=== PATIENT | female | born 1940 | race Caucasian/White ===

== ENCOUNTER 2018-06-23 06:57 | Inpatient (IN) ==
[~2018-06-23 06:57] MED LIST: Bisacodyl 10 MG Supp RECTAL PRN; HYDROmorphone PF Inj 1 MG/ML Ampul IV.PUSH PRN; Post-op Orders (for Pharmacy) OTHER STA; Zolpidem Tartrate 5 MG Tablet PO PRN
[2018-06-23] MEDS ORDERED: Dexamethasone Inj 20 MG/5 ML Vial IV.PUSH ONE (07:37)
[2018-06-23] MEDS ORDERED: Chlorhexidine 4% Topical 120 APPLIC/120 ML Bottle TOPICAL SCH (07:45)
[2018-06-23] MEDS ORDERED: ceFAZolin 2 GM Premix Inj 2 GM/50 ML PIGGYBACK IV.SIG ONE (07:52)
[2018-06-23] MEDS ORDERED: Dexamethasone PF Inj 10 MG/ML Vial ONE (07:53)
[2018-06-23] MEDS ORDERED: Metoprolol Tartrate 25 MG Tablet PO ONE (07:58)
[2018-06-23] MEDS ORDERED: Chlorhexidine Gluconate 2% 1 Pack (2 Cloths) TOPICAL ONE (07:58)
[2018-06-23] MEDS ORDERED: Vancomycin Inj 1,000 MG in Sodium Chlor 0.9% Inj 250 ML IV.SIG SCH (08:00)
[2018-06-23] MEDS ORDERED: Tranexamic Acid Inj 954 MG in Sodium Chlor 0.9% Inj 100 ML IV.SIG SCH (08:00)
[2018-06-23] MEDS ORDERED: Sodium Chlor 0.9% Inj 500 ML IV.SIG ONE (08:00)
[2018-06-23] MEDS ORDERED: Sodium Chlor 0.9% Inj 40 ML, Bupivacaine Liposo PF 1.3% Inj 20 ML P-ARTICULR SCH ×2 (08:00)
[2018-06-23] MEDS ORDERED: Tranexamic Acid Inj 3,000 MG in Sodium Chlor 0.9% Inj 100 ML P-ARTICULR ONE (08:00)
[2018-06-23] MEDS ORDERED: Acetaminophen 500 MG Tablet ONE (08:48)
[2018-06-23] MEDS: Hydroxychloroquine 200 MG Tablet PO SCH ×2 (09:00→22:20)
[2018-06-23] MEDS ORDERED: ceFAZolin 2 GM Premix Inj 2 GM/50 ML PIGGYBACK IV.SIG SCH (09:00)
[2018-06-23] MEDS ORDERED: Glycopyrrolate Inj 1 MG/5 ML Syringe IV.PUSH ONE (09:18)
[2018-06-23] MEDS ORDERED: Metoprolol Inj 5 MG/5 ML Vial IV.PUSH ONE (09:18)
[2018-06-23] MEDS ORDERED: Lidocaine PF 1% Inj 5 ML Syringe OTHER ONE (09:18)
[2018-06-23] MEDS ORDERED: Neostigmine Inj 5 MG/5 ML Syringe IV.PUSH ONE (09:18)
--- NOTE | 2018-06-23 11:25 | P.OP ---
Procedure: PREOPERATIVE DIAGNOSIS: Left hip osteoarthritis. POSTOPERATIVE DIAGNOSIS: Left hip osteoarthritis. PROCEDURE PERFORMED: Left total hip arthroplasty. SURGEON: Dr. Jackson Reveles M.D. DIRECTOR SOCIAL: SALO Johnson. ANESTHESIA: General. ESTIMATED BLOOD LOSS: 250 mL. COMPLICATIONS: None. IMPLANTS USED: Depuy Corail femoral stem []10 Sidney Gripsion Cup []56 Poly insert liner neutral []56/36 neutral femoral head []36 cobalt chrome neck length [] +8.5 JUSTIFICATION: This patient presents to the undersigned at the orthopedic clinic with chief complaints of severe left hip pain. The pain is severe and constant and interferes with activities of daily living. The patient has failed greater than 3 months of nonoperative conservative treatment to include analgesic and nonsteroidal anti-inflammatory medications, physical therapy, cortisone injections, activity modification, weight loss, home exercise program, and use of ambulatory assistive aids. X-rays of left hip reveal severe osteoarthritis with [id number] joint space narrowing, subchondral sclerosis, subchondral cysts, osteophyte formation with subluxation. The patient was counseled on risks, benefits, and alternatives to a total hip arthroplasty. The risks were discussed, which include, but are not limited to, anesthesia, bleeding, infection, damage to nerves and blood vessels , pain, stiffness, fracture, dislocations, leg length discrepancy, failure of components, blood clots, pulmonary embolus, and even . The patient favored the benefits over the risks, did wish to proceed with surgery. PROCEDURE IN DETAIL: Written consent was obtained. The patient was identified by name, taken to the operating room and placed supine on the operating table. General anesthesia was administered. The patient was preoperative IV antibiotics. The patient right and left feet were placed in the padded traction boots. The left hip and lower extremity was then prepped and draped using isopropyl alcohol, Hibiclens solution and ChloraPrep solution. After a timeout was performed, a longitudinal incision was made over the anterior aspect of the left hip. The fascia good was incised. Dissection was carried over the tensor fascia good beneath the rectus femoris. After exposure of the anterior capsule, a capsulotomy incision was performed. An oscillating saw was used to perform a femoral neck cut. The Osteoarthritic femoral head and neck was removed. A 10 blade scalpel was used to excise the labrum. Sequential reaming of the acetabulum was performed. Subsequently a porous-coated titanium acetabular cup was implanted in a press manner in approximately 45 degrees of abduction and 10 degrees of anteversion. There was good purchase and fixation after insertion of the acetabular cup. The cup was tested manually and noted to have excellent stability and fixation. A neutral highly cross-linked polyethylene liner was placed within the cup. The liner was impacted in place for fixation and tested for stability. Attention was turned to the femur where the leg was externally rotated, extended and adducted. The capsule was released off the undersurface of the greater trochanter to allow for elevation and lateralization of the femur. A box cutting osteotome was used to gain entrance into the intramedullary canal of the femur. This was followed by a canal finder and sequential broaching. A calcar planer to plane the calcar. A trial head and neck combination were evaluated prior to implantation of final components. With the final implants placed, the leg could achieve external rotation of 70 degrees and extension to the the ground without evidence of anterior instability or impingement. Soft tissue tension felt appropriate. Fluoroscopic imaging showed appropriate implantation of components. The Surgical wound was thoroughly irrigated with sterile saline Pulse Lavage antibiotic impregnated solution. The fascial layer was closed with #1 Vicryl suture, subcutaneous layer with 2-0 Vicryl sutures. The skin was closed with Dermabond. Sterile dressing applied. No intraoperative complications noted. Abhi Ferreira, Physician Health Therapist, Certified was present for the entire procedure to include the patient position, the procedure itself. The medical necessity of a physician industrial hire sales assistant was indicated in this case due to the complexity of the procedure. He assisted with position of the patient along with the ear itself. During the procedure he assisted with exposure and the retraction of muscle, tendon, bone, and neurovascular vessel structures. He assisted with the preparation of bone and also implantation of the prosthetic replacement. There was a certified surgical assistant in the room that assisted with management of instruments, but was not available to assist with the surgery itself. Jackson Burks MD Surgeon: Jackson Burks MD
[2018-06-23] MEDS ORDERED: fentaNYL Citrate Inj 100 MCG/2 ML Ampul ONE (11:50)
[2018-06-23] MEDS ORDERED: Morphine Inj 4 MG/ML Vial ONE (11:50)
[2018-06-23] MEDS ORDERED: *morphine SULFATE 4 MG/ML PERIprocedure ONLY ONE (11:50)
[2018-06-23] MEDS ORDERED: *Meperidine Inj 25 MG/ML Vial PERIprocedural Use ONLY ONE (11:53)
[2018-06-23] MEDS ORDERED: Labetalol HCl Inj 100 MG/20 ML Vial ONE (11:54)
--- NOTE | 2018-06-23 13:27 | XR ---
EXAM DATE: 06/23/2018 1:23 PM EST AGE/SEX: 77 years / Female INDICATIONS: Post op left hip. CLINICAL DATA: This is the patient's initial encounter. Patient reports that signs and symptoms have been present for 1 day and indicates a pain score of Nonresponsive. MEDICAL/SURGICAL HISTORY: Non-responsive. Non-responsive. total left hip COMPARISON: No prior exams available for comparison. FINDINGS: The patient is status post a total hip arthroplasty. Prosthesis is well-seated. Alignment is anatomic . A fracture is not appreciated. CONCLUSION: Anatomic alignment. Oscar Bundy MD FACR : Electronically signed by: Oscar Bundy MD Board Certified Radiologist 06/23/2018 1:26 PM EST
--- NOTE | 2018-06-23 13:28 | XR ---
EXAM DATE: 06/23/2018 1:15 PM EST AGE/SEX: 77 years / Female INDICATIONS: Post-op total left hip arthroplasty. CLINICAL DATA: This is the patient's initial encounter. Patient reports that signs and symptoms have been present for 1 day and indicates a pain score of Nonresponsive. MEDICAL/SURGICAL HISTORY: Non-responsive. Non-responsive. COMPARISON: No prior exams available for comparison. FINDINGS: Left total hip arthroplasty changes are noted. Alignment is normal. No fracture or subluxation seen. CONCLUSION: Postop left total hip arthroplasty. No evidence of an acute complication. Electronically signed by: Ramirez Loo MD Board Certified Radiologist 06/23/2018 1:27 PM EST
[2018-06-23] MEDS: ceFAZolin 2 GM Premix Inj 2 GM/50 ML PIGGYBACK IV.SIG SCH ×2 (16:10→22:19)
[2018-06-23] MEDS: Senna/Docusate Sodium 8.6/50 MG Tablet PO SCH ×2 (16:11→22:19)
[2018-06-23] MEDS: Multivitamin/Minerals Therapeutic Tablet PO SCH ×2 (16:11→22:19)
[2018-06-24] MEDS: ceFAZolin 2 GM Premix Inj 2 GM/50 ML PIGGYBACK IV.SIG SCH (03:42)
[2018-06-24 05:01] LABS: Hematocrit 25.4 % (35.0-46.0); Hemoglobin 8.7 gm/dL (11.6-15.3)
--- NOTE | 2018-06-24 08:17 | P.PNOP ---
Subjective Interval history: doing well. pain controlled. Physical Exam Vital signs: Vital Signs 06/23/18 11:40 06/23/18 11:55 06/23/18 12:10 Temperature 98.0 F Pulse Rate 67 68 56 L Respiratory Rate 20 18 18 Blood Pressure 176/76 H 212/84 H 167/72 H Pulse Oximetry 99 99 99 06/23/18 12:25 06/23/18 12:45 06/23/18 13:15 Temperature 97.8 F Pulse Rate 56 L 57 L 55 L Respiratory Rate 20 18 18 Blood Pressure 149/65 H 147/65 H 156/67 H Pulse Oximetry 100 100 99 06/23/18 13:48 06/23/18 14:16 06/23/18 14:45 Temperature 97.4 F L Pulse Rate 56 L 59 L 64 Respiratory Rate 20 20 18 Blood Pressure 156/70 H 151/67 H 122/94 H Pulse Oximetry 100 100 99 06/23/18 16:00 06/23/18 19:46 06/23/18 23:58 Temperature 97.4 F L 98.1 F 98.2 F Pulse Rate 61 67 75 Respiratory Rate 17 18 18 Blood Pressure 164/72 H 131/62 134/63 Pulse Oximetry 96 96 97 06/24/18 04:05 Temperature 98.0 F Pulse Rate 73 Respiratory Rate 18 Blood Pressure 156/70 H Pulse Oximetry 94 L Intake & Output 06/23/18 06/24/18 06/24/18 18:59 06:59 18:59 Intake Total 1259.54 / 1259.54 410 / 410 Output Total 200 / 200 Balance 1059.54 / 1059.54 410 / 410 Weight 63.6 kg 63.6 kg Intake: IV 459.54 / 459.54 50 / 50 Cyklokapron Inj 954 MG In NS 109.54 / 109.54 Inj 100 ML @ 200 mls/hr IV.SIG ONCE ALEXANDER Rx#:[id number] Vancomycin Inj 1,000 MG In NS 250 / 250 Inj 250 ML @ 250 mls/hr IV.SIG POWER LINEMAN TECHNICIAN ALEXANDER Rx#:[id number] Ancef 2 GM Premix Inj 2 gm In 100 / 100 50 / 50 50 ml @ 100 mls/hr IV.SIG Q6H ALEXANDER Rx#:[id number] Oral 360 / 360 Anesthesia Amount 800 / 800 Output: Estimated Blood Loss 200 / 200 Other: # Voids 3 Date of Last Bowel Movement 06/22/18 # Bowel Movements 0 Weight On Admission 63.6 kg Narrative: in bed, nad dressing c/d/i thigh soft neg homans nvi Results - Labs CBC & Chem 7: 06/24/18 04:09 Laboratory Results - last 24 hr 06/23/18 06/24/18 07:50 04:09 Hgb 8.7 L Hct 25.4 L Blood Type A Positive Blood Type Recheck Required Antibody Screen Negative - Imaging Impressions Hip X-Ray 06/23/18 00:00 CONCLUSION: Postop left total hip arthroplasty. No evidence of an acute complication. Hip X-Ray 06/23/18 06:44 CONCLUSION: Anatomic alignment. Oscar Bundy MD FACR : Assessment and Plan - Ortho Post Op Day # 1 - Assessment and Plan s/p L EL anterior approach wbat maintain dressing asa 81 d/c planning home with [facility] and pt - cleared today if does well in pt f/up dr. escamilla 2 weeks
--- NOTE | 2018-06-24 08:17 | P.DCO ---
- Physical Therapy Physical Therapy: Gait training, Safety evaluation, Transfer training, bed to chair Hip: Total hip, Protocol: Left Left Lower Extremity Weight Bearing: Weight bearing as tolerated - Nursing RN days per week: 1 Nursing: Dressing changes - Case Management Consult Case Management Consult-Home Health: Yes - Certification Need for Home Health services: I have seen patient Lili Sr on 06/24/18. My clinical findings support the need for the requested home health care services because: Need for Home Health Services: Limited ability to care for self, High risk of falls Homebound Certification: I certify that my clinical findings support that this patient is homebound because: Homebound Certification: Post-op weakness, Unsafe to leave home unassisted
[2018-06-24] MEDS: Senna/Docusate Sodium 8.6/50 MG Tablet PO SCH (09:17)
[2018-06-24] MEDS: Multivitamin/Minerals Therapeutic Tablet PO SCH (09:18)
[2018-06-24] MEDS: Hydroxychloroquine 200 MG Tablet PO SCH (09:20)
[2018-06-24 12:09] VITALS: BP 143/63; PULSE 68; RESP 18; TEMP 97.6; O2SAT 99
--- NOTE | 2018-06-26 13:01 | MD ---
cc: Jackson Burks MD DATE OF DISCHARGE: 06/24/2018 ADMITTING DIAGNOSIS: Severe degenerative osteoarthritis of the left hip. DISCHARGE DIAGNOSIS: Severe degenerative osteoarthritis of the left hip. HISTORY OF PRESENT ILLNESS: This patient is a 77-year-old female who is a patient of Dr. Abhi Burks at [facility]. Currently, she has been evaluated for severe and progressive left hip pain. The patient states the pain has been present for many years and is currently limiting her ability to ambulate safely. She has severe aching sensation in the left leg and hip region with any type of weightbearing. She has no alleviating factors, although she has tried medications, assistive devices, physical therapy, and home exercise program without relief of symptoms. She has x-ray evidence of severe degenerative changes of the left hip. While in the office, the patient was counseled on her diagnosis and treatment options. Risks, benefits, and indications were discussed. The patient elected to proceed with surgical intervention to include a left total hip arthroplasty. Date of surgery is 06/23/2018, left total hip arthroplasty, anterior approach surgery. Postop, after surgery, the patient was admitted to [facility] where she received medical management, pain control, DVT prophylaxis, as well as physical therapy. DISCHARGE: Once being discharged from the hospital, the patient has been cleared to go home where she will receive home health care and home physical therapy. She is in stable condition. She may weight bear as tolerated with anterior hip precautions. She has been instructed on wound care management. She has been provided prescriptions for pain control and DVT prophylaxis. She has also been brought a followup appointment in approximately 2 weeks from her date of surgery. The patient has asked appropriate questions, which have been answered. The patient has been discharged. Dictated by VANIA Johnson MD NASIM Summers/christine , 08:28 AM , 08:33 AM
== END 2018-06-24 14:52 | disposition home health service (06) | DRG 470 ==
LOC: HSDC 06:57 → EDSTATUS 10:00 → HSDI 12:07 → N06 14:45
PROVIDERS: ADMIT Orthopaedic Surgery Sports Medicine; ATTEND Orthopaedic Surgery Sports Medicine
CPT/HCPCS: 73502; 76000; 85014; 85018; 86850; 86900; 86901; 94150; 97110; 97116; 97150; 97163; 97166; C1776; C9290; J0690; J1100; J1580; J2175; J2270; J2405; J2704; J2710; J3010; J3370; J7050; J7120